=== PATIENT | male | born 1960 | race Caucasian/White ===

== ENCOUNTER 2018-02-05 13:42 | Emergency (ER) | payer OTHER ==
[2018-02-05] MEDS ORDERED: TORAdol 30 mg Injection IV ONE (14:44)
[2018-02-05] MEDS ORDERED: solu-MEDROL 125 MG IV ONE (14:44)
[2018-02-05] MEDS ORDERED: solu-MEDROL 125 MG ONE (14:51)
[2018-02-05] MEDS ORDERED: TORAdol 30 mg Injection ONE (14:51)
--- NOTE | 2018-02-05 14:51 | ERPHSYRPT ---
- History of Present Illness Time Seen by Provider: 02/05/18 14:23 Source: patient Exam Limitations: no limitations Patient Subjective Stated Complaint: STATES HAS HERNIATED DISC IN NECK AND WAS WORKING AT THE [employer] TODAY WHEN HIS RIGHT HAND AND ARM WENT NUMB AND HE LOST HIS CHUTE TAPPER ON THE HANDLE OF HIS TRUCK. STATES HE FELL BACK ONTO BUTTOCKS. STATES NUMBNESS IN RIGHT ARM IS NORMAL FOR HIM. Triage Nursing Assessment: TO ROOM PER EMS COT. C-COLLAR IN PLACE. SKIN W/D, COLOR NORMAL, RESP EASY. TENDERNESS TO POSTERIOR NECK, PATIENT STATES THIS IS NORMAL FOR HIM. ALSO HAVING NUMBNESS IN RIGHT ARM AND HAND, STATES THIS IS ALSO NORMAL. WREN EXT WITHOUT DIFFICULTY. GOOD RADIAL PULSE. A/O TIMES THREE. SPEECH CLEAR. Physician History: Pt has been treated with cervical radiculopathy, ruptured discs in the past, since he suffered a falling accident 3 years ago. He was at work today, lifting something heavy, elevated above head, and felt sudden numbness in his right arm. He denies fall, head injury, or headaches, he is diabetic, has a history of heart attack, and mentioned pain in his right chest recently. He denies cough , fever, SOB, nausea, diaphoresis, or other complaints. He has also been treated with Neuropathy. Occurred: just prior to arrival Method of Injury: other (lifting) Quality: constant Severity of Pain-Max: moderate Severity of Pain-Current: moderate Extremities Pain Location: shoulder: right, arm: right, forearm: right Modifying Factors: Improves With: nothing Associated Symptoms: chest discomfort Allergies/Adverse Reactions: No Known Drug Allergies Allergy (Unverified 02/05/18 14:00) Home Medications: Aspirin EC 81 mg [Ecotrin 81 mg] 81 mg PO DAILY 02/05/18 [History] Clopidogrel Bisulfate 75 mg [PLAVIX 75 MG Tablet] 75 mg PO DAILY 02/05/18 [History] Dapagliflozin Propanediol [Farxiga] 5 mg PO DAILY 02/05/18 [History] Glipizide 10 mg [Glucotrol 10 MG] 20 mg PO BID 02/05/18 [History] Metformin HCl 850 mg [Glucophage 850 MG] 850 mg PO BID 02/05/18 [History] Hx Tetanus, Diphtheria Vaccination/Date Given: No Hx Influenza Vaccination/Date Given: Yes Hx Pneumococcal Vaccination/Date Given: No - Review of Systems Constitutional: No Symptoms Eyes: No Symptoms Ears, Nose, & Throat: No Symptoms Respiratory: No Symptoms Cardiac: Chest Pain, No Edema, No Syncope Abdominal/Gastrointestinal: No Symptoms Genitourinary Symptoms: No Symptoms Neurological: Parasthesia, Other (Neuropathy) All Other Systems: Reviewed and Negative - Past Medical History Pertinent Past Medical History: Yes Cardiac History: Angina, Coronary Artery Disease, Myocardial Infarction ([place]) Endocrine Medical History: Diabetes Type II Musculoskeletal History: Other GI Medical History: Hernia History: Other Other Medical History: KIDNEY STONES - Past Surgical History Past Surgical History: Yes Cardiac: Cardiac Catheterization, Cardiac Stent Musculoskeletal: Orthopedic Surgery Other Surgical History: CARPAL TUNNEL, SHOULDER SURGERY, - Social History Smoking Status: Never smoker Exposure to second hand smoke: No Drug Use: none Patient Lives Alone: No - Nursing Vital Signs Nursing Vital Signs: Initial Vital Signs Temperature 97.8 F 02/05/18 13:47 Pulse Rate 88 02/05/18 13:47 Respiratory Rate 16 02/05/18 13:47 Blood Pressure 133/75 02/05/18 13:47 O2 Sat by Pulse Oximetry 96 02/05/18 13:47 Pain Scale Pain Intensity 6 - Physical Exam General Appearance: no apparent distress Eyes, Ears, Nose, Throat Exam: normal ENT inspection Neck Exam: normal inspection Cardiovascular/Respiratory Exam: chest non-tender, normal breath sounds, regular rate/rhythm, heart sounds normal, no ecchymosis, no JVD, no respiratory distress Abdominal Exam: non-tender, soft Back Exam: normal inspection, No CVA tenderness, No vertebral tenderness, No rash Shoulder Exam: normal inspection DTR - Upper Extremity Exam: bicep (R): 3+, bicep (L): 3+ Neuro/Tendon Exam: normal sensation, normal motor functions Mental Status Exam: alert, oriented x 3, cooperative Skin Exam: normal color, warm, dry, No rash SpO2 Interpretation: normal SpO2: 96 Oxygen Delivery: Room Air - Course Nursing assessment & vital signs reviewed: Yes EKG Interpreted by Me: RATE (84/min), Left Berwind Deviation, NORMAL INTERVALS, Other (inferior Q waves, repeat Ek:02 PM; unchanged) - Radiology Exams Chest X-ray Interpretation: Reviewed by me, Negative - CT Exams Cervical Spine CT Interpretation: Negative, Other (cervical lordotic straightening, positional vs paraspinal spasm) Ordered Tests: Active Orders 24 hr Category Date Time Status [employer] STAT Care 02/05/18 14:41 Active Clean Catch Urine Specimen STAT Care 02/05/18 14:58 Active EKG-ER Only STAT Care 02/05/18 14:41 Active EKG-ER Only STAT Care 02/05/18 16:56 Active IV Insertion STAT Care 02/05/18 14:41 Active Oxygen-ED Only NASAL CANNULA 2 lpm Care 02/05/18 14:41 Active CERVICAL SPINE WO CONTRAST [CT] Routine Exams 02/05/18 15:05 Completed CHEST 1 VIEW (PORTABLE) Stat Exams 02/05/18 14:41 Completed CBC W DIFF Stat Lab 02/05/18 15:00 Completed CK-Creatinine Phosphokinase Stat Lab 02/05/18 15:00 Completed CMP Stat Lab 02/05/18 15:00 Completed D-DIMER QUANTITATION Stat Lab 02/05/18 15:00 Completed NT PRO BNP Stat Lab 02/05/18 15:00 Completed PROTIME WITH INR Stat Lab 02/05/18 15:00 Completed PTT Stat Lab 02/05/18 15:00 Completed TROPONIN Q3H Lab 02/05/18 15:00 Completed TROPONIN Q3H Lab 02/05/18 17:18 Completed TROPONIN Q3H Lab 02/05/18 20:45 Ordered TROPONIN Q3H Lab 02/05/18 23:45 Ordered TROPONIN Q3H Lab 02/06/18 02:45 Ordered Urine Triage Profile Stat Lab 02/05/18 Completed Medication Summary Discontinued Medications Generic Name Dose Route Start Last Admin Trade Name Freq PRN Reason Stop Dose Admin Ketorolac Tromethamine 30 mg 02/05/18 14:44 02/05/18 15:01 Toradol 30 Mg Injection IV 02/05/18 14:45 30 mg STAT ONE Administration Ketorolac Tromethamine Confirm 02/05/18 14:51 Toradol 30 Mg Injection Administered 02/05/18 14:52 Dose 30 mg .ROUTE .STK-MED ONE Methylprednisolone Sodium Succinate 125 mg 02/05/18 14:44 02/05/18 15:00 Solu-Medrol 125 Mg IV 02/05/18 14:45 125 mg STAT ONE Administration Methylprednisolone Sodium Succinate Confirm 02/05/18 14:51 Solu-Medrol 125 Mg Administered 02/05/18 14:52 Dose 125 mg .ROUTE .STK-MED ONE Lab/Rad Data: Laboratory Result Diagrams 02/05/18 15:00 02/05/18 15:00 Laboratory Results 02/05/18 02/05/18 02/05/18 Range/Units Unknown 17:18 15:00 WBC (4.0-10.5) K/mm3 RBC (4.1-5.6) M/mm3 Hgb (12.5-18.0) gm/dl Hct (42-50) % MCV (78-100) fl MCH (26-32) pg MCHC (32-36) g/dl RDW (11.5-14.0) % Plt Count (150-450) K/mm3 MPV (6-9.5) fl Gran % (36.0-66.0) % Eos # (Auto) (0-0.5) Absolute Lymphs (auto) (1.0-4.6) Absolute Monos (auto) (0.0-1.3) Lymphocytes % (24.0-44.0) % Monocytes % (0.0-12.0) % Eosinophils % (0.00-5.0) % Basophils % (0.0-0.4) % Absolute Granulocytes (1.4-6.9) Basophils # (0-0.4) PT (8.83-12.87) SECONDS INR (0.8-3.0) APTT (24.1-36.1) SECONDS D-Dimer (215-500) ng/mL Sodium (137-145) mmol/L Potassium (3.5-5.1) mmol/L Chloride (98-107) mmol/L Carbon Dioxide (22-30) mmol/L Anion Gap (5-15) MEQ/L BUN (9-20) mg/dL Creatinine (0.66-1.25) mg/dL Estimated GFR ML/MIN Glucose (74-106) mg/dL Calcium (8.4-10.2) mg/dL Total Bilirubin (0.2-1.3) mg/dL AST (17-59) U/L ALT (0-50) U/L Alkaline Phosphatase (38-126) U/L Creatine Kinase (55-170) U/L Troponin I < 0.012 < 0.012 (0.000-0.034) ng/mL NT-Pro-B Natriuret Pep (0-900) pg/mL Serum Total Protein (6.3-8.2) g/dL Albumin (3.5-5.0) g/dL Urine Opiates Level NEGATIVE (NEGATIVE) Ur Methadone NEGATIVE (NEGATIVE) Urine Barbiturates NEGATIVE (NEGATIVE) Ur Phencyclidine (PCP) NEGATIVE (NEGATIVE) Urine Amphetamine NEGATIVE (NEGATIVE) U Benzodiazepine Level NEGATIVE (NEGATIVE) Urine Cocaine NEGATIVE (NEGATIVE) Urine Marijuana (THC) NEGATIVE (NEGATIVE) 02/05/18 02/05/18 02/05/18 Range/Units 15:00 15:00 15:00 WBC 9.9 (4.0-10.5) K/mm3 RBC 5.63 H (4.1-5.6) M/mm3 Hgb 18.2 H (12.5-18.0) gm/dl Hct 51.8 H (42-50) % MCV 92.0 (78-100) fl MCH 32.3 H (26-32) pg MCHC 35.1 (32-36) g/dl RDW 13.4 (11.5-14.0) % Plt Count 177 (150-450) K/mm3 MPV 10.1 H (6-9.5) fl Gran % 67.4 H (36.0-66.0) % Eos # (Auto) 0.09 (0-0.5) Absolute Lymphs (auto) 2.31 (1.0-4.6) Absolute Monos (auto) 0.80 (0.0-1.3) Lymphocytes % 23.3 L (24.0-44.0) % Monocytes % 8.1 (0.0-12.0) % Eosinophils % 0.9 (0.00-5.0) % Basophils % 0.3 (0.0-0.4) % Absolute Granulocytes 6.67 (1.4-6.9) Basophils # 0.03 (0-0.4) PT 11.9 (8.83-12.87) SECONDS INR 1.07 (0.8-3.0) APTT 26.9 (24.1-36.1) SECONDS D-Dimer < 215 L (215-500) ng/mL Sodium 143 (137-145) mmol/L Potassium 4.2 (3.5-5.1) mmol/L Chloride 105 (98-107) mmol/L Carbon Dioxide 25 (22-30) mmol/L Anion Gap 16.9 H (5-15) MEQ/L BUN 15 (9-20) mg/dL Creatinine 0.86 (0.66-1.25) mg/dL Estimated GFR > 60.0 ML/MIN Glucose 249 H (74-106) mg/dL Calcium 9.7 (8.4-10.2) mg/dL Total Bilirubin 0.50 (0.2-1.3) mg/dL AST 31 (17-59) U/L ALT 51 H (0-50) U/L Alkaline Phosphatase 91 (38-126) U/L Creatine Kinase 152 (55-170) U/L Troponin I (0.000-0.034) ng/mL NT-Pro-B Natriuret Pep 34.3 (0-900) pg/mL Serum Total Protein 6.9 (6.3-8.2) g/dL Albumin 4.2 (3.5-5.0) g/dL Urine Opiates Level (NEGATIVE) Ur Methadone (NEGATIVE) Urine Barbiturates (NEGATIVE) Ur Phencyclidine (PCP) (NEGATIVE) Urine Amphetamine (NEGATIVE) U Benzodiazepine Level (NEGATIVE) Urine Cocaine (NEGATIVE) Urine Marijuana (THC) (NEGATIVE) - Progress Progress: improved Progress Note: 02/05/18 17:22 Pt states, improved a little bit, denies chest pain or SOB, no dizziness or nausea, stable. I informed him and his about our results, second troponin negative, he is being discharged home to follow up with his physician and pain clinic for his neck pain. Return if severe pain, sudden arm weakness, numbness, or chest pain. He was given Flexeril 10 mg TID #15, refused Narcotics, he will take Advil as needed. Counseled pt/family regarding: lab results, diagnosis, need for follow-up, rad results - Departure Time of Disposition: 18:05 Departure Disposition: Home Clinical Impression: Cervical radiculopathy Condition: Good Critical Care Time: No Referrals: DOCTOR,NO FAMILY [Primary Care Provider] - Instructions: Paresthesias (DC) Additional Instructions: Rest x 2-3 days, apply moist heat to neck, return if severe pain, headaches, sudden arm weakness, numbness, or chest pain!
--- NOTE | 2018-02-05 15:10 | XRAY ---
Indication: Chest pain. Comparison: None Portable chest demonstrates normal heart and lungs. Bony thorax intact with distal right clavicle resection.
[2018-02-05 15:11] LABS: BASOPHIL % 0.3 % (0.0-0.4); Basophil (Absolute #) 0.03 (0-0.4); Eosinophil % 0.9 % (0.00-5.0); Eosinophil (Absolute #) 0.09 (0-0.5); Granulocyte Absolute (ANC) 6.67 (1.4-6.9); Granulocytes % 67.4 % (36.0-66.0); Hematocrit 51.8 % (42-50); Hemoglobin 18.2 gm/dl (12.5-18.0); Lymphocyte (Absolute #) 2.31 (1.0-4.6); Lymphocytes % 23.3 % (24.0-44.0); Mean Corpuscular Hemoglobin 32.3 pg (26-32); Mean Corpuscular Hgb Concent. 35.1 g/dl (32-36); Mean Platelet Volume 10.1 fl (6-9.5); Monocytes % 8.1 % (0.0-12.0); Platelet Count 177 K/mm3 (150-450); Red Blood Count 5.63 M/mm3 (4.1-5.6); Red Cell Distribution Width 13.4 % (11.5-14.0); White Blood Count 9.9 K/mm3 (4.0-10.5)
[2018-02-05 15:27] LABS: ALBUMIN 4.2 g/dL (3.5-5.0); ALKALINE PHOSPHATASE 91 U/L (38-126); ANION GAP 16.9 MEQ/L (5-15); BLOOD UREA NITROGEN 15 mg/dL (9-20); CHLORIDE 105 mmol/L (98-107); CK-Creatinine Phosphokinase 152 U/L (55-170); Calcium 9.7 mg/dL (8.4-10.2); Carbon Dioxide 25 mmol/L (22-30); Creatinine 1 0.86 mg/dL (0.66-1.25); Glucose 249 mg/dL (74-106); Potassium 4.2 mmol/L (3.5-5.1); SGOT/AST 31 U/L (17-59); SGPT/ALT 51 U/L (0-50); SODIUM 143 mmol/L (137-145); Total Protein 6.9 g/dL (6.3-8.2)
[2018-02-05 15:32] LABS: INR 1.07 (0.8-3.0)
[2018-02-05 15:34] LABS: PTT 26.9 SECONDS (24.1-36.1)
[2018-02-05 15:36] LABS: NT PRO BNP 34.3 pg/mL (0-900)
--- NOTE | 2018-02-05 15:38 | XRAY ---
Indication: Neck pain following fall. Multiple contiguous axial images obtained through the cervical spine. Sagittal and coronal reformatted images obtained. Comparison: None Axial images negative for acute fracture, suspicious bony lesions, or spinal canal stenosis. Mild C3-C4 and C5-C6 degenerative endplate spurring and minimal right C5-C7 degenerative facet arthropathy. Sagittal and coronal reformatted images demonstrates cervical lordotic straightening, positional versus paraspinal spasm. Minimal C5-C6 disc space narrowing. No acute compression fracture, subluxation, or jumped facet. Normal-appearing craniocervical junction. Visualized noncontrasted soft tissues including base of the brain and lung apices unremarkable. Impression: 1. Cervical lordotic straightening, positional versus paraspinal spasm. 2. Negative acute fracture/subluxation. 3. Multilevel degenerative disc disease better evaluated with outpatient MRI exam. CTDI 69.71
[2018-02-05 15:46] LABS: D-DIMER QUANTITATION < 215 ng/mL (215-500)
[2018-02-05 16:09] VITALS: PULSE 90
[2018-02-05 17:22] VITALS: O2SAT 96
[2018-02-05 17:29] LABS: Amphetamine,Urine NEGATIVE (NEGATIVE); Barbiturate,Urine NEGATIVE (NEGATIVE); Benzodiazepine,Urine NEGATIVE (NEGATIVE); Cocaine,Urine NEGATIVE (NEGATIVE); Methadone,Urine NEGATIVE (NEGATIVE); Opiate,Urine NEGATIVE (NEGATIVE); PCP,Urine NEGATIVE (NEGATIVE); THC,Urine NEGATIVE (NEGATIVE)
[2018-02-05 18:28] VITALS: BP 133/75
== END 2018-02-05 18:28 | disposition home or self-care (01) ==
LOC: ED 13:42
DX: M54.12 Radiculopathy, cervical region (principal); M25.511 Pain in right shoulder; M79.631 Pain in right forearm; Z79.01 Long term (current) use of anticoagulants; Z79.82 Long term (current) use of aspirin; Z79.899 Other long term (current) drug therapy; E11.9 Type 2 diabetes mellitus without complications; Z79.84 Long term (current) use of oral hypoglycemic drugs; R07.9 Chest pain, unspecified
CPT/HCPCS: 36000; 36415; 71045; 72125; 80053; 80307; 82550; 83880; 84484; 85025; 85379; 85610; 85730; 93005; 93041; 96374; 96375; 99284; 99285; J1885; J2930